=== PATIENT | female | born 1990 | race Caucasian/White ===

== ENCOUNTER 2022-02-28 10:31 | Outpatient (CLI) | payer OTHER, SELFPAY ==
--- NOTE | 2022-02-28 10:34 | ECG_ITS ---
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
[2022-02-28 11:26] LABS: Anion Gap 4 mmol/L (8-16); Blood Urea Nitrogen 9 mg/dL (7-17); Calcium 8.9 mg/dL (8.4-10.2); Carbon Dioxide 29 mmol/L (22-30); Chloride 103 mmol/L (98-107); Estimated Glomerular Filt Rate > 60; Glucose 83 mg/dL (65-110); Potassium 3.6 mmol/L (3.4-5.0); Sodium 136 mmol/L (137-145)
== END 2022-02-28 10:32 | disposition home or self-care (01) ==
PROVIDERS: Anesthesiology; Visit Provider Obstetrics & Gynecology
DX: Z01.818 Encounter for other preprocedural examination (principal); E11.9 Type 2 diabetes mellitus without complications; N94.6 Dysmenorrhea, unspecified
CPT/HCPCS: 36415; 80048; 86850; 86900; 86901; 93005

== ENCOUNTER 2022-03-07 00:55 | Day surgery (SDC) | payer OTHER, SELFPAY ==
[2022-02-20 10:55] VITALS: BMI 40.7
--- NOTE | 2022-02-20 11:22 | PC.NURSE ---
Report to the Outpatient Waiting Room, entrance under the green pavilion located off [facility], at time __10:00AM on date __03/07/22 . Planned Procedure Time: __12:00PM . Time changes happen often and if your time is changed the preop area will call you the afternoon before. - You and your visitor will be asked to self-screen and do not enter if you have any COVID symptoms. - Only one visitor is requested with a max of two and NO children visitors are allowed at this time. - The patient visitor may be requested to leave or wait in car when not with patient due to distancing restrictions. - A mask is optional within the hospital. Patients may have clear liquids (water, carbonated beverages, clear teas, apple juice) until 3 hours prior to surgery with a maximum of 20 ounces. - No food from midnight until time of surgery Take the following medications with a SIP of water the morning of surgery: NONE Medications to discontinue per physician ___HOLD ASPIRIN/EXCEDRIN PER DR GLEZ Date to take last dose Please no make-up, nail rwandan, hairspray, perfume, deodorant, or body powder the day of surgery. No jewelry (including any body piercings) or valuables the day of surgery, leave them at home. Please take a shower or bath the night before, or the morning of, surgery with an antibacterial soap. Wear comfortable, loose fitting clothing. Children are encouraged to wear pajamas. - Jewelry must be removed prior to entering the operating room. Rings and piercings that are not removed may be cut off. - The hospital will not accept responsibility for valuables. - Please leave all valuables, including medications, at home the day of surgery. If you are going home after surgery, a licensed cdl flatbed truck driver must drive you home. - NO public transportation without another adult if you receive anesthesia. - We recommend that an adult stay with you for 24 hours following discharge. - We also recommend that you do not drive, make important decision, drink alcoholic beverages, or take any drugs that were not prescribed by your health care provider for at least 24 hours after your discharge time. Follow any additional instructions given to you from your surgeon. If you or anyone in your household have experienced Covid symptoms in the past week, please notify your surgeon or the nurse liaison at the phone number below for possible testing. Telephone instructions given to __PATIENT and asked if any additional questions and then verbalized understanding. Patient advised to call surgeon office or pre surgery nurse liaison [phone] if any additional questions.
[2022-03-07] VITALS (11 sets, daily range): BP systolic 120–138; BP diastolic 72–86; PULSE 63–85; RESP 16–18; TEMP 36.4–37.1; O2SAT 92–100; BMI 40.4
--- NOTE | 2022-03-07 10:37 | WPDANESEPPF ---
Anes - Initial Pre Proc Eval Procedure: Operation Date: 03/07/22 12:00 Proposed Procedures p Robotic Assisted Total Hysterectomy with Bilateral Salpingectomy - Miranda Chawla MD Date/Time: 03/07/22 10:37 Surgeon: Miranda Chawla MD Pre Op Diagnosis: dysmenorrhea Patient Data Age: 31 Gender: F Height: 1.7 m Weight: 118 kg Allergies Allergy/AdvReac Type Severity Reaction Status Date / Time No Known Allergies Allergy Verified 03/07/22 10:07 Home Medications Medication Instructions Recorded Confirmed Type ptvpbrl-ojnfzlitiumdt-djxbcuga 250 2 tablet PO Q4-6H PRN Headache 02/20/22 02/20/22 History mg-250 mg-65 mg tablet (Excedrin Migraine) Patient hx anesthesia problems: none Family hx anesthesia problems: none Results Review: All pre-operative results and documents have been reviewed as part of the pre-operative evaluation. [facility] Past Medical History Medical History (Updated 03/07/22 @ 10:39 by Davy Stallings DO) Anxiety Depression Diabetes type 2, controlled Hypothyroidism Panic attack Scoliosis Surgical History Surgical History (Updated 03/07/22 @ 10:39 by Davy Stallings DO) H/O Spinal surgery thoracic/lumbar fusion for scoliosis History of tubal ligation Social History Social History Smoking packs per day: 0.2 Smoking cigarettes per day: 4.0 Years smoked: 10 Smoking pack-years: 2.00 Smoking status: Former smoker Tobacco type: cigarettes Smoking end date: 11/09/21 Alcohol intake: current Drinks per week: 2 Substance use: current Substance use type: marijuana Other substance usage details: 2/DAY Living arrangements: with family Additional living arrangements comments: CHILDREN Spiritual care concerns: No Anes - Eval Final PreProcedure Day of Procedure 03/07/22 10:37 Patient weight: morbidly obese Heart: regular rate and rhythm Lungs: clear to auscultation Airway: Mallampati scale class II and special considerations poor dentition Neurological: alert and oriented Last oral intake: >/= 8 hours ASA classification: III Emergent: no Anesthetic plan: proceed Anesthesia type and monitoring: general ETT and standard monitoring Results Review: All pre-operative results and documents have been reviewed as part of the pre-operative evaluation. Informed Consent: The patient's anesthetic plan and its attendant risks and benefits were discussed with the patient/family/POA. Questions were solicited and answers provided to the satisfaction of the patient/family/POA.
[2022-03-07] MEDS: LACTATED RINGERS 1,000 ML 30 ML IV CONT ×2 (10:40→14:35)
[2022-03-07] MEDS: ACETAMINOPHEN 500 MG TABLET 1000 MG PO (10:46)
[2022-03-07] MEDS: KETOROLAC 15 MG/ML VIAL (*BKC) IV PUSH (10:46)
[2022-03-07 10:55] LABS: Glucose Point of Care 96 mg/dl (65-105)
--- NOTE | 2022-03-07 11:52 | WPDHPUPDATE1 ---
History and Physical Update Update Date/Time: 03/07/22 11:52 History and Physical has been reviewed, including an updated exam of the patient. There are NO changes in the patient's condition. Risks, benefits, and alternatives have been discussed and questions answered. Patient agrees to proceed with procedure.
[2022-03-07 14:52] LABS: Glucose Point of Care 156 mg/dl (65-105)
--- NOTE | 2022-03-07 16:19 | W.PM.PROC2 ---
Procedure Note - Detailed Date of Procedure 03/07/22 Pre-op Diagnosis dysmenorrhea Post-op Diagnosis Same Procedure Performed Robot assisted Total hysterectomy with bilateral salpingectomy. Surgeon Miranda Chawla MD Anesthesia General Indications heavy vaginal bleeding, pelvic pain Findings Enlarged fibroid uterus, bilaterally ligated fallopian tubes, normal-appearing ovaries, redundant colon. Description of Procedure This patient was taken to the operating room. She was prepped and draped in the dorsal lithotomy position after induction of general anesthesia. The uterine manipulator and Mike cup were placed. This was done with a speculum and tenaculum. The speculum was placed. The cervix was grasped with a tenaculum. The stay sutures were placed at 3 and 9:00 a.m.. The stay sutures of 0 Vicryl were tied to the appropriately Size scope after it was slipped around the cervix.. The tip of the ANGEL manipulator was placed in the intrauterine cavity. The cup was slid into place around the cervix and into the fornices. It was locked into place. The sutures were then wrapped around the handle and tied under tension. A 8 mm skin incision was made in the left upper quadrant the abdomen. a 5 mm Visiport trocar was inserted into abdominal cavity and pneumoperitoneum was achieved. A 8 mm supraumbilical incision was made and a 8 mm trocar was inserted into the intrauterine cavity under direct visualization of the scope. an 8 mm incision was made in the right upper quadrant of the abdomen and an 8 mm robotic trocar was placed the inter uterine cavity under direct visualization the scope. An 11 mm trocar was inserted in the right upper quadrant of the abdomen rectal is a cystoscope after an incision was made there as well. The robot was docked. Electronic Orientation of the robot was performed. Bilateral ureteral lysis was performed. This was done from the pelvic brim down to the uterine artery. This was done with careful dissection using sharp and blunt dissection. The fallopian tubes were removed bilaterally. The mesosalpinx around the fallopian tubes were cauterized transected with LigaSure cautery. This was done in a bilateral fashion from the ovary to the uterine cornua. The fallopian tube was transected at the uterine cornu and amputated. The tube was taken out the left lower quadrant trocar site. In a stepwise fashion along the lateral aspects of the uterus the round ligament and broad ligaments were cauterized transected down to the level of the uterine arteries. A bladder flap was created in the bladder was moved distally to the end of the cervix and over the Mike cup. The bilateral uterine arteries were cauterized and transected. Colpotomy was then performed. In a circumferential fashion the vagina was transected using unipolar cautery. The incision was made down on the Mike cup. The uterus and cervix were taken out through the vagina. A pneumo occluder was placed in the vagina. The vaginal cuff was closed with a 0 V lock suture in a running fashion. The pelvis was irrigated with copious amounts antibiotic irrigation. The ureters were again examined and found to be intact and flowing freely under the uterine arteries into the bladder. The bladder was intact. It was examined directly. The vagina was irrigated with Betadine solution after removal of the Pneumo occluder. the trocars were removed after the robot was undocked. The skin was closed with subacute or Dermabond. The patient was taken to recovery room. She was stable condition. Sponge lap and needle counts were correct x2. Estimated Blood Loss -40.0 Urine Output 800 Drains Yes Packing No Pathology Yes Complications No immediate complications Condition Stable Disposition Floor
--- NOTE | 2022-03-07 16:30 | PC.NURSE ---
Pt brought to the floor via bed. Oriented to room, call light within reach. Visitor at bedside.
[2022-03-07] MEDS: KETOROLAC 30 MG/ML VIAL (*BKC) IV PUSH (16:51)
[2022-03-07] MEDS: DEXTROSE 5%/0.45% SOD CHL 1,000 ML 125 ML IV CONT (16:51)
[2022-03-07] MEDS: HYDROcodone/acetaminophen (*CRX) 10-325 MG TABLET 1 TAB PO ×2 (19:10→23:13)
[2022-03-07] MEDS: RIVAROXABAN 10 MG TABLET PO (20:30)
[2022-03-08] VITALS: BP 135/82; PULSE 90; RESP 18; TEMP 36.8
[2022-03-08 04:00] VITALS: BP 126/74; PULSE 81; RESP 18; TEMP 36.8
[2022-03-08] MEDS: HYDROcodone/acetaminophen (*CRX) 10-325 MG TABLET 1 TAB PO (08:16)
[2022-03-08 08:25] VITALS: BP 117/76; PULSE 82; RESP 16; TEMP 36.4; O2SAT 99
--- NOTE | 2022-03-08 08:37 | PM.GYNPNOP ---
PAINTER TOUCH UP - A/P Postoperative Procedures: Procedures Operation Date: 03/07/22 12:00 Actual Procedure Side Surgeon p Robotic Assisted Total Hysterectomy with Bilateral Salpingectomy Bilateral Miranda Chawla MD Postoperative day: 1 Postoperative status: doing well Postoperative plan: see orders Time Spent With Patient Time: Total time spent is greater than 50% in coordination of care (as documented) at patient's floor/unit and/or counseling patient: Time with patient: less than 15 minutes PAINTER TOUCH UP- PN:Subj Post-Op Subjective Date/time seen: 03/08/22 08:37 Subjective: patient reports feeling better, patient has no complaints and pain is well controlled Exam Const: General: healthy appearing, comfortable and no acute distress Resp: Auscultation: clear to auscultation bilaterally, no rales, no rhonchi and no wheezes Cardio: Rate: regular rate Heart sounds: no click, no murmurs and no rubs GI: Inspection: non-distended Auscultation: normal bowel sounds Extrem: General: normal to inspection, no pedal edema and no calf tenderness PAINTER TOUCH UP - PN: Obj Data Vital Signs Vital Signs: Vital Signs - 24 hr 03/07/22 10:05 03/07/22 14:35 03/07/22 14:50 Temperature 98.3 F 97.9 F Pulse Rate 82 85 67 Respiratory Rate 18 18 18 Blood Pressure 120/79 137/78 128/73 Pulse Oximetry 99 100 98 Oxygen Delivery Room Air Simple Face Mask Simple Face Mask Oxygen Flow Rate 6 6 03/07/22 15:05 03/07/22 15:35 03/07/22 15:20 Temperature Pulse Rate 63 71 63 Respiratory Rate 18 18 18 Blood Pressure 129/76 124/79 127/77 Pulse Oximetry 99 92 98 Oxygen Delivery Simple Face Mask Room Air Room Air Oxygen Flow Rate 6 03/07/22 15:50 03/07/22 16:05 03/07/22 16:20 Temperature 97.6 F Pulse Rate 71 68 64 Respiratory Rate 16 16 16 Blood Pressure 130/79 126/74 137/84 Pulse Oximetry 96 97 97 Oxygen Delivery Nasal Cannula Nasal Cannula Nasal Cannula Oxygen Flow Rate 2 2 2 03/07/22 16:30 03/07/22 16:30 03/07/22 20:00 Temperature 98.7 F 97.7 F Pulse Rate 65 65 85 Respiratory Rate 16 16 18 Blood Pressure 138/86 121/72 Pulse Oximetry 98 98 Oxygen Delivery Nasal Cannula Oxygen Flow Rate 2 03/07/22 20:00 03/07/22 23:20 03/08/22 00:00 Temperature 98.2 F Pulse Rate 90 Respiratory Rate 18 Blood Pressure 135/82 Pulse Oximetry Oxygen Delivery Room Air Room Air Oxygen Flow Rate 03/08/22 04:00 03/08/22 04:00 03/08/22 07:08 Temperature 98.2 F Pulse Rate 81 Respiratory Rate 18 Blood Pressure 126/74 Pulse Oximetry Oxygen Delivery Room Air Room Air Oxygen Flow Rate Intake/Output Intake/Output: Intake & Output 03/05/22 03/06/22 03/07/22 03/08/22 23:59 23:59 23:59 23:59 Intake Total 1920 Output Total 1710 Balance 210 Meds/Results Medications: Active Medications Generic Name Dose Route Start Last Admin Trade Name Freq PRN Reason Stop Dose Admin Hydrocodone Bitart/Acetaminophen 1 tab 03/07/22 16:22 Hydrocodone/Acetaminophen (*Crx) 5-325 Mg Tablet PO Q3H PRN Pain Rated 5 or Less Hydrocodone Bitart/Acetaminophen 1 tab 03/07/22 16:22 03/08/22 08:16 Hydrocodone/Acetaminophen (*Crx) 10-325 Mg Tablet PO 1 tab Q3H PRN Administration Pain Rated 6 or Greater Ibuprofen 600 mg 03/07/22 16:22 Ibuprofen 600 Mg Tablet PO Q6H PRN Cramping Ketorolac Tromethamine 30 mg 03/07/22 16:22 03/07/22 16:51 Ketorolac 30 Mg/Ml Vial (*Bkc) IV PUSH 03/12/22 16:21 30 mg Q6H PRN Administration Pain Rated 4-6 Naloxone HCl 0.1 mg 03/07/22 16:22 Naloxone Hcl 0.4 Mg/Ml Vial IV PUSH Q2M PRN Respiratory rate less than 10 Ondansetron HCl 4 mg 03/07/22 16:22 Ondansetron Inj 4 Mg/2 Ml Vial IV PUSH Q6H PRN Nausea And Vomiting Rivaroxaban 10 mg 03/08/22 18:00 Rivaroxaban 10 Mg Tablet PO QPM [facility] Labs Labs: Laboratory Results - last 24 hr 03/07/22 03/07/22 10:50 14:50 POC [facility]
--- NOTE | 2022-03-08 11:19 | PCCCNOTE ---
Care Coordination received referral for Xarelto, this is a home medication.
== END 2022-03-08 10:30 | disposition home or self-care (01) ==
LOC: ANHSURGERY 09:49 → ANHOB2 16:44
PROVIDERS: Visit Provider Obstetrics & Gynecology
PROC: (CPT 58571; principal; 2022-03-07 12:00)
DX: N94.6 Dysmenorrhea, unspecified (principal); R10.2 Pelvic and perineal pain; N72 Inflammatory disease of cervix uteri; N83.8 Other noninflammatory disorders of ovary, fallopian tube and broad ligament; Z87.891 Personal history of nicotine dependence; F12.90 Cannabis use, unspecified, uncomplicated; E66.01 Morbid (severe) obesity due to excess calories; Z68.41 Body mass index [BMI] 40.0-44.9, adult; Z79.84 Long term (current) use of oral hypoglycemic drugs
CPT/HCPCS: 58571; S2900; 82948; 88307; 99199; A9270; J0690; J1100; J1885; J2250; J2270; J2405; J2704; J2710; J7120